=== PATIENT | female | born 1945 | race Caucasian/White ===

== ENCOUNTER 2018-02-27 07:32 | Inpatient (IN) | payer OTHER ==
[~2018-02-27] VITALS: Ht 152.4 cm; Wt 62.2 kg
[2018-02-27 07:38] VITALS: Ht 152.4 cm; Wt 62.2 kg
[2018-02-27 08:31] LABS: UA SPECIFIC GRAVITY >=1.030 (1.005-1.035); microscopic required? YES; urine erythrocyte 1+ (NEGATIVE)
[2018-02-27 08:34] LABS: BASOPHIL % 0.8 % (0-2); CALCIUM 8.8 mg/dL (8.5-10.1); CARBON DIOXIDE 24.4 mmol/L (21-32); CHLORIDE SERUM 106 mmol/L (98-107); GLUCOSE SERUM 105 mg/dL (74-106); PLATELET COUNT 228 x10^3mcL (130-400); POTASSIUM SERUM 3.4 mmol/L (3.5-5.1); RED CELL DISTRIBUTION WIDTH 13.1 % (11.5-14.5); SODIUM SERUM 142 mmol/L (136-145)
[2018-02-27 08:39] LABS: ALBUMIN 3.4 g/dL (3.4-5.0); ALKALINE PHOSPHATASE 70 U/L (46-116); ALT/SGPT 38 U/L (14-59); AST/SGOT 25 U/L (15-37); BILIRUBIN TOTAL 0.48 mg/dL (0.20-1.00); TOTAL PROTEIN, SERUM 7.9 g/dL (6.4-8.2)
[2018-02-27] MEDS ORDERED: PRO40 PO (09:21)
[2018-02-27] MEDS ORDERED: AMBIEN5 MG PO (09:23)
[2018-02-27] MEDS ORDERED: IBU600 M2 PO (09:23)
[2018-02-27] MEDS ORDERED: FLAGYL500 MG PO (09:23)
[2018-02-27] MEDS ORDERED: ESTRACE0.1 MG/GM (09:23)
[2018-02-27] MEDS ORDERED: CIPRO500 MG PO (09:26)
[2018-02-27 11:35] VITALS: BP 134/68
[2018-02-27 17:15] VITALS: BP 123/68
[2018-02-27 21:14] VITALS: BP 112/57
[2018-02-28 06:16] VITALS: BP 124/60
[2018-02-28 06:29] LABS: BASOPHIL % 0.3 % (0-2); PLATELET COUNT 218 x10^3mcL (130-400)
[2018-02-28 06:42] LABS: CALCIUM 8.2 mg/dL (8.5-10.1); CARBON DIOXIDE 23.9 mmol/L (21-32); CHLORIDE SERUM 109 mmol/L (98-107); CREATININE SERUM 0.9 mg/dL (0.6-1.0); GLUCOSE SERUM 92 mg/dL (74-106); POTASSIUM SERUM 3.8 mmol/L (3.5-5.1); SODIUM SERUM 142 mmol/L (136-145)
[2018-02-28 08:53] VITALS: BP 121/73
[2018-02-28 16:44] VITALS: BP 125/64
[2018-02-28 20:51] VITALS: BP 107/61
[2018-03-01 06:07] VITALS: BP 112/55
[2018-03-01 09:30] VITALS: BP 110/60
[2018-03-01 12:19] VITALS: BP 110/60
== END 2018-03-01 14:42 | disposition home or self-care (01) | DRG 391 ==
LOC: ED 07:32 → MU 09:56
PROVIDERS: Emergency Medicine; ADMIT Internal Medicine
DX: K57.32 Diverticulitis of large intestine without perforation or abscess without bleeding (principal); K65.9 Peritonitis, unspecified; N39.0 Urinary tract infection, site not specified; K57.30 Diverticulosis of large intestine without perforation or abscess without bleeding; I10 Essential (primary) hypertension; Z68.26 Body mass index [BMI] 26.0-26.9, adult
CPT/HCPCS: J2543; J2550; J3490; J7030

== ENCOUNTER 2018-12-12 15:03 | Emergency (ER) | payer OTHER ==
[~2018-12-12] VITALS: Ht 160 cm; Wt 65.3 kg
[~2018-12-12 15:03] MED LIST: AMBIEN5 MG PO; CIPRO500 MG PO; ESTRACE0.1 MG/GM; FLAGYL500 MG PO; IBU600 M2 PO; PRO40 PO
[2018-12-12 15:16] VITALS: Ht 160 cm; Wt 65.3 kg
[2018-12-12 16:44] LABS: UA SPECIFIC GRAVITY 1.015 (1.005-1.035); microscopic required? YES; urine erythrocyte 2+ (NEGATIVE)
[2018-12-12 17:03] LABS: PLATELET COUNT 191 x10^3mcL (130-400); RED CELL DISTRIBUTION WIDTH 12.7 % (11.5-14.5)
[2018-12-12 17:05] LABS: BASOPHIL % 2.7 % (0-2)
[2018-12-12 17:11] LABS: CALCIUM 8.5 mg/dL (8.5-10.1); CARBON DIOXIDE 25.3 mmol/L (21-32); CHLORIDE SERUM 107 mmol/L (98-107); GLUCOSE SERUM 95 mg/dL (74-106); POTASSIUM SERUM 3.7 mmol/L (3.5-5.1); SODIUM SERUM 140 mmol/L (136-145)
[2018-12-12 17:15] LABS: ALKALINE PHOSPHATASE 79 U/L (46-116); ALT/SGPT 33 U/L (14-59); AST/SGOT 18 U/L (15-37); BILIRUBIN TOTAL 0.6 mg/dL (0.20-1.00); TOTAL PROTEIN, SERUM 7.6 g/dL (6.4-8.2)
[2018-12-12 17:16] LABS: ALBUMIN 3.3 g/dL (3.4-5.0)
[2018-12-12 21:43] VITALS: BP 134/70
== END 2018-12-12 21:43 | disposition home or self-care (01) ==
LOC: ED 15:03
PROVIDERS: Emergency Medicine
DX: K57.32 Diverticulitis of large intestine without perforation or abscess without bleeding (principal); Z98.890 Other specified postprocedural states; Z88.5 Allergy status to narcotic agent
CPT/HCPCS: 87804; J0744; J3490; J7030; Q0092; Q0162; Q9967